=== PATIENT | female | born 1960 | race African-American/Black ===

== ENCOUNTER 2020-05-24 21:04 | Emergency (ER) | payer MEDICARE, MEDICAID ==
[~2020-05-24] VITALS: Ht 162.6 cm; Wt 61.0 kg
[2020-05-24 23:12] VITALS: BP 148/81
== END 2020-05-24 23:13 | disposition home or self-care (01) ==
LOC: ER 21:23
DX: R68.89 Other general symptoms and signs (principal); K21.9 Gastro-esophageal reflux disease without esophagitis; I10 Essential (primary) hypertension
CPT/HCPCS: 99282